=== PATIENT | male | born 1965 | race Caucasian/White ===

== ENCOUNTER 2023-12-20 08:00 | Outpatient (CLI) | payer OTHER, SELFPAY ==
[2023-12-20 13:26] LABS: Basophils Absolute Auto 0.1 K/mm3 (0.0-0.1); Eosinophils Absolute Auto 0.3 K/mm3 (0-0.3); Hematocrit 45.6 % (42.0-52.0); Hemoglobin 14.3 g/dL (14.0-18.0); Immature Granulocyte Absolute 0.03 K/mm3 (0.00-0.031); Immature Granulocyte Percent A 0.4 % (0-0.5); Lymphocytes Absolute Auto 1.83 K/mm3 (0.9-3.2); Mean Corpuscular HGB Conc 31.4 g/dl (32-36); Mean Corpuscular Hemoglobin 28.1 pg (26-34); Mean Corpuscular Volume 89.8 fl (80-100); Mean Platelet Volume 10.1 fl (7.4-10.4); Monocytes Absolute Auto 0.8 K/mm3 (0.1-0.6); Monocytes Percent Auto 11.2 % (2.6-8.5); Neutrophils Absolute Auto 3.8 K/mm3 (1.3-6.7); Neutrophils Percent Auto 55.4 % (45.5-73.1); Platelet Count Result 293 k/mm3 (150-375); Red Blood Count 5.08 M/mm3 (4.6-6.20); Red Cell Distribution Width 13.2 % (11.5-14.5); White Blood Count 6.8 K/mm3 (4.5-10.0)
[2023-12-20 13:39] LABS: Alanine Aminotransferase 36 U/L (6-50); Albumin Level 4.6 g/dL (3.5-5.1); Alkaline Phosphatase 53 U/L (38-126); Anion Gap 10 mmol/L (4-12); Aspartate Amino Transferase 48 U/L (17-59); Bilirubin,Total 0.7 mg/dL (0.2-1.3); Blood Urea Nitrogen 22 mg/dL (9-20); Calcium 9.9 mg/dL (8.4-10.2); Carbon Dioxide 28 mmol/L (22-30); Chloride 101 mmol/L (98-107); Cholesterol 189 mg/dL (0-200); Estimated Glomerular Filt Rate 52; Glucose 74 mg/dL (65-110); HDL Direct 38 mg/dL; Sodium 139 mmol/L (137-145); Triglycerides 164 mg/dL (<150)
[2023-12-20 13:52] LABS: LDL Cholesterol Direct 124 mg/dL
[2023-12-20 14:06] LABS: Prostate Specific Antigen 0.6 ng/mL (< OR = 4.0)
== END 2023-12-20 08:01 | disposition home or self-care (01) ==
LOC: ANHGOSHLAB 08:02
PROVIDERS: PCP Family Medicine; Visit Provider Family Medicine
DX: I10 Essential (primary) hypertension (principal); Z12.5 Encounter for screening for malignant neoplasm of prostate; Z00.00 Encounter for general adult medical examination without abnormal findings; E78.5 Hyperlipidemia, unspecified; E55.9 Vitamin D deficiency, unspecified; E53.8 Deficiency of other specified B group vitamins
CPT/HCPCS: 36415; 80053; 80061; 82306; 82607; 84153; 84443; 85025; G0103

== ENCOUNTER 2024-12-23 08:33 | Outpatient (CLI) | payer OTHER, SELFPAY ==
--- OUTSIDE RECORDS SUMMARY | 2024-12-23 08:56 | XMS_ITS | Clinical Summary ---
Author Organization [facility] [employer] Address [address] [place] [address] Care Team Providers Care Wine Manager Name Role Phone Janeth Ireland MD Primary Care Provider Allergies No known active allergies Medications lisinopril-hydr oCHLOROthiazide (ZESTORETIC) 20-12.5 mg per tablet Take 1 tablet by mouth daily Active niacin 100 mg tablet Take 100 mg by mouth as needed Active multivitamin capsule Take 1 capsule by mouth daily Active Active Problems Problem Noted Date Diagnosed Date Dizziness and giddiness 09/16/2021 Tinnitus of left ear 09/16/2021 Medical History Medical History Date Comments Hypertension Tinnitus Dizziness Family History Medical History Relation Name Comments Cancer Father Cancer Mother Relation Name Status Comments Father Mother Social History Tobacco Use Types Packs/Day Years Used Date Smoking Tobacco: Never Smokeless Tobacco: Never Personal Safety Answer Date Recorded Getting School Help Needed Not on file 09/18 Sex and Gender Information Value Date Recorded Sex Assigned at Not on file Legal Sex Male 8:30 AM AVAYA ENGINEER Gender Identity Not on file Sexual Orientation Not on file Obstetrics History Last Filed Vital Signs Vital Sign Reading Time Taken Comments Blood Pressure - - Pulse - - Temperature - - Respiratory Rate 17 09/14/2021 12:52 PM AVAYA ENGINEER Oxygen Saturation - - Inhaled Oxygen Concentration - - Weight 88.5 kg (195 lb) 09/14/2021 12:52 PM AVAYA ENGINEER Height 170.2 cm (5' 7) 09/14/2021 12:52 PM AVAYA ENGINEER Body Mass Index 30.54 09/14/2021 12:52 PM AVAYA ENGINEER Plan of Treatment Not on file Insurance [employer] Care Teams Wine Manager Relationship Specialty Start Date End Date Janeth Ireland MD PCP - General Family Practice 09/13/21
--- OUTSIDE RECORDS SUMMARY | 2024-12-23 08:56 | XMS_ITS | Referral Summary ---
Author Organization [facility] [[email or web address]] [address] [employer] Address [address] [place] [address] Care Team Providers Care Hand Paster Name Role Phone Janeth Ireland MD Primary [...] giddiness 09/16/2021 Tinnitus of left ear 09/16/2021 Social History Tobacco Use Types Packs/Day Years Used Date Smoking Tobacco: Never Smokeless Tobacco: Never Personal Safety Answer Date Recorded Getting School Help Needed Not on file 09/18 Sex and Gender Information Value Date Recorded Sex Assigned at Not on file Legal Sex Male 8:30 AM IT HELP DESK MANAGER Gender Identity Not on file Sexual Orientation Not on file Last Filed Vital Signs Vital Sign Reading Time Taken Comments Blood Pressure - - Pulse - - Temperature - - Respiratory Rate 17 09/14/2021 12:52 PM IT HELP DESK MANAGER Oxygen Saturation - - Inhaled Oxygen Concentration - - Weight 88.5 kg (195 lb) 09/14/2021 12:52 PM IT HELP DESK MANAGER Height 170.2 cm (5' 7) 09/14/2021 12:52 PM IT HELP DESK MANAGER Body Mass Index 30.54 09/14/2021 12:52 PM IT HELP DESK MANAGER Plan of Treatment Not on file Insurance [employer] Care Teams Hand Paster Relationship Specialty Start Date End Date Janeth Ireland MD PCP - General Family Practice 09/13/21
--- OUTSIDE RECORDS SUMMARY | 2024-12-23 08:56 | XMS_ITS | Clinical Summary ---
Author Organization [facility] Address [address] [facility] [address] [address] Phone Care Team Providers Care Systems Protection Technician Name Role Phone Janeth Ireland MD Primary Care Provider Allergies No known active allergies Medications lisinopril-hydro CHLOROthiazide (PRINZIDE, ZESTORETIC) 20-12.5 MG Tablet Take 1 Tab by mouth daily. Active niacin 100 MG Tablet Take 100 mg by mouth as needed. Active Encounters Date Type Department Care Team Description 09/25/2024 Telephone [facility] - Gastroenterology [facility] [address] [place] [address] Analilia Canales APRN, ANALYTICAL STATISTICIAN Procedure; Appointment from Last 3 Months Family History Medical History Relation Name Comments Cancer Father PROSTATE Hypertension Mother Stroke Mother Relation Name Status Comments Father Alive Mother Alive Social History Tobacco Use Types Packs/Day Years Used Date Smoking Tobacco: Never Smokeless Tobacco: Never Alcohol Use Standard Drinks/Week Comments Yes 0 (1 standard drink = 0.6 oz pur e alcohol) OCCASSIONALLY Sex and Gender Information Value Date Recorded Sex Assigned at Not on file Legal Sex Male 8:57 AM CDT Gender Identity Not on file Sexual Orientation Not on file Occupation Industry Job Start Date Job End Date [employer] Not on file Not on file Not on file Last Filed Vital Signs Vital Sign Reading Time Taken Comments Blood Pressure 112/65 05/04/2019 11:26 AM CDT Pulse 62 05/04/2019 11:26 AM CDT Temperature 36 C (96.8 F) 05/04/2019 11:26 AM CDT Respiratory Rate 14 05/04/2019 11:26 AM CDT Oxygen Saturation 100% 05/04/2019 11:26 AM CDT Inhaled Oxygen Concentration - - Weight 86.2 kg (190 lb) 04/21/2019 9:00 AM CDT Height 170.2 cm (5' 7) 04/21/2019 9:00 AM CDT Body Mass Index 29.76 04/21/2019 9:00 AM CDT Plan of Treatment Health Maintenance Due Date Last Done Comments Hepatitis C Virus (HCV) Screening 1965 TdaP Immunization 1965 Cologuard 2014 Immunochemical Fecal Occult Blood 2014 Pneumococcal Immunization (5 0+ years) (1 of 1 - PCV) 2014 Zoster Immunization (1 of 2) 2014 PSA Discussion 2019 Colonoscopy 05/04/2024 05/04/2019 Colorectal Cancer Screening 05/04/2024 Influenza Immunization (#1) 2024 SARS-COV-2 Immunization ( - 2023-25 season) 2024 Respiratory Syncytial Virus (RSV) Immunization (Adult) (1 - 1-dose 75+ series) 2039 05/04/2019 Hepatitis B Immunization Aged Out No longer eligible based on patient's age to complete this topic Meningococcal Immunization (ACWY) Aged Out No longer eligible based on patient's age to complete this topic Rotavirus Immunization Aged Out No lo nger eligible based on patient's age to complete this topic Insurance [facility] on file Care Teams Systems Protection Technician Relationship Specialty Start Date End Date Janeth Ireland MD PCP - General Family Medicine 02/13/19
--- OUTSIDE RECORDS SUMMARY | 2024-12-23 08:56 | XMS_ITS | Clinical Summary ---
Author Organization [facility] Address [address] [place] [address] Care Team Providers Care Executive Assistant To General Counsel Name Role Phone Janeth Ireland MD Primary Care Provider Allergies No known active allergies Medications diazePAM 5 MG tabletIndications:V ertigo Take 1 tablet (5 mg total) by mouth every 6 (six) hours as needed (vertigo). 30 tablet 1 Active prochlorperazine 10 MG tablet Take 1 tablet (10 mg total) by mouth every 6 (six) hours as needed (nausea/vom iting). 30 tablet 1 Active ondansetron 4 MG disintegrating tablet Take 1 tablet (4 mg total) by mouth every 6 (six) hours as needed for Nausea. 12 tablet 1 Active Active Problems Problem Noted Date Diagnosed Date Vertigo 10/25/2021 Social History Tobacco Use Types Packs/Day Years Used Date Smoking Tobacco: Never Assessed Sex and Gender Information Value Date Recorded Sex Assigned at Not on file Legal Sex Male 10:20 AM SENIOR LINUX ADMINISTRATOR Gender Identity Not on file Sexual Orientation Not on file Last Filed Vital Signs Vital Sign Reading Time Taken Comments Blood Pressure 150/64 09/07/2021 2:11 PM SENIOR LINUX ADMINISTRATOR Pulse 80 09/07/2021 2:11 PM SENIOR LINUX ADMINISTRATOR Temperature 36.4 C (97.5 F) 09/07/2021 10:28 AM SENIOR LINUX ADMINISTRATOR Respiratory Rate 20 09/07/2021 2:11 PM SENIOR LINUX ADMINISTRATOR Oxygen Saturation 99% 09/07/2021 2:11 PM SENIOR LINUX ADMINISTRATOR Inhaled Oxygen Concentration - - Weight 86.2 kg (190 lb) 09/07/2021 10:28 AM SENIOR LINUX ADMINISTRATOR Height 170.2 cm (5' 7) 09/07/2021 10:28 AM SENIOR LINUX ADMINISTRATOR Body Mass Index 29.76 09/07/2021 10:28 AM SENIOR LINUX ADMINISTRATOR Plan of Treatment Health Maintenance Due Date Last Done Comments Colorectal Cancer Screening Colonoscopy (10 Years) 1964 Annual Physical 1967 Hepatitis C 1982 Zoster Vaccines (1 of 2) 2014 COVID-19 Vaccine (1 - 2023-2 5 season) 2024 DTaP, Tdap and Td Vaccines ( 2 - Td or Tdap) 12/24/2024 12/24/2014 RSV Immunization or 60+ Years (1 - 1-dose 75+ series) 2039 Meningococcal B Vaccine Aged Out No l onger eligible based on patient's age to complete this topic Meningococcal Vaccine Aged Out No demarco breanne eligible based on patient's age to complete this topic Pneumococcal Vaccine: Pediat rics (0 to 5 Years) and At-Risk Patients (6 to 64 Years) Aged Out No longer eligi ble based on patient's age to complete this topic RSV Immunizations Under 20 Months Aged Out No longer eligible based on patient's age to complete this topic Insurance [employer] Care Teams Executive Assistant To General Counsel Relationship Specialty Start Date End Date Janteh Ireland MD [address] [place] [address] PCP - General FAMILY PRACTICE 09/07/21
[2024-12-23 11:24] LABS: Basophils Absolute Auto 0.1 K/mm3 (0.0-0.1); Basophils Percent Auto 0.9 % (0.2-1.2); Eosinophils Absolute Auto 0.2 K/mm3 (0-0.3); Eosinophils Percent Auto 3.5 % (0-4.4); Hematocrit 44.8 % (42.0-52.0); Immature Granulocyte Absolute 0.03 K/mm3 (0.00-0.031); Immature Granulocyte Percent A 0.4 % (0-0.5); Lymphocytes Absolute Auto 2.22 K/mm3 (0.9-3.2); Lymphocytes Percent Auto 32.6 % (18.3-44.2); Mean Corpuscular HGB Conc 31.3 g/dl (32-36); Mean Corpuscular Hemoglobin 27.7 pg (26-34); Mean Corpuscular Volume 88.5 fl (80-100); Mean Platelet Volume 10.3 fl (7.4-10.4); Monocytes Absolute Auto 0.5 K/mm3 (0.1-0.6); Monocytes Percent Auto 7.8 % (2.6-8.5); Neutrophils Absolute Auto 3.7 K/mm3 (1.3-6.7); Neutrophils Percent Auto 54.8 % (45.5-73.1); Platelet Count Result 302 k/mm3 (150-375); Red Blood Count 5.06 M/mm3 (4.6-6.20); Red Cell Distribution Width 13.2 % (11.5-14.5); White Blood Count 6.8 K/mm3 (4.5-10.0)
[2024-12-23 12:24] LABS: Alanine Aminotransferase 29 U/L (6-50); Albumin Level 4.5 g/dL (3.5-5.1); Alkaline Phosphatase 49 U/L (38-126); Anion Gap 9 mmol/L (4-12); Aspartate Amino Transferase 29 U/L (17-59); Bilirubin,Total 0.4 mg/dL (0.2-1.3); Blood Urea Nitrogen 25 mg/dL (9-20); Calcium 9.2 mg/dL (8.4-10.2); Carbon Dioxide 27 mmol/L (22-30); Chloride 102 mmol/L (98-107); Cholesterol 161 mg/dL (0-200); Estimated Glomerular Filt Rate 51; Glucose 87 mg/dL (65-110); HDL Direct 36 mg/dL; Potassium 3.8 mmol/L (3.4-5.0); Sodium 138 mmol/L (137-145); Triglycerides 154 mg/dL (<150)
[2024-12-23 12:35] LABS: LDL Cholesterol Direct 103 mg/dL
[2024-12-23 12:58] LABS: Prostate Specific Antigen 0.8 ng/mL (< OR = 4.0)
== END 2024-12-23 08:34 | disposition home or self-care (01) ==
LOC: ANHGOSHLAB 08:34
PROVIDERS: PCP Family Medicine; Visit Provider Nurse Practitioner Family
DX: E78.5 Hyperlipidemia, unspecified (principal); I10 Essential (primary) hypertension; Z12.5 Encounter for screening for malignant neoplasm of prostate; Z13.220 Encounter for screening for lipoid disorders; N18.30 Chronic kidney disease, stage 3 unspecified
CPT/HCPCS: 36415; 80053; 80061; 84153; 84443; 85025; G0103

== ENCOUNTER 2025-01-04 01:03 | Day surgery (SDC) | payer OTHER, SELFPAY ==
[2024-12-24 11:03] VITALS: BMI 32.4
--- OUTSIDE RECORDS SUMMARY | 2025-01-04 01:07 | XMS_ITS | Clinical Summary ---
Author Organization [facility] Address [address], [address] [address] Phone Care Team Providers Care Tool Builder Name Role Phone Janeth Ireland MD Primary Care Provider Allergies No known active allergies Medications lisinopril-hydro CHLOROthiazide (PRINZIDE, ZESTORETIC) 20-12.5 MG Tablet Take 1 Tab by mouth daily. Active niacin 100 MG Tablet Take 100 mg by mouth as needed. Active Family History Medical History Relation Name Comments [...] 9:00 AM CDT Height 170.2 cm (5' 7 ) 04/21/2019 9:00 AM CDT Body Mass Index [...] Immunization (#1) 2024 SARS-COV-2 Immunization ( - season) 2024 Respiratory Syncytial Virus (RSV) Immunization [...] patient's age to complete this topic [place] [address] [place] [address] on file Care Teams Tool Builder Relationship Specialty Start Date End Date Janeth Ireland MD PCP - General Family Medicine 02/13/19
--- OUTSIDE RECORDS SUMMARY | 2025-01-04 01:07 | XMS_ITS | Clinical Summary ---
Author Organization [facility] [address] [employer] Address [address] [place] [address] Care Team Providers Care Poultry Pinner Name Role Phone Janeth Ireland MD Primary [...] on file Legal Sex Male 8:30 AM SHUTTLE FILLER Gender Identity Not on file Sexual Orientation Not on file Obstetrics History Last Filed Vital Signs Vital Sign Reading Time Taken Comments Blood Pressure - - Pulse - - Temperature - - Respiratory Rate 17 09/14/2021 12:52 PM SHUTTLE FILLER Oxygen Saturation - - Inhaled Oxygen Concentration - - Weight 88.5 kg (195 lb) 09/14/2021 12:52 PM SHUTTLE FILLER Height 170.2 cm (5' 7 ) 09/14/2021 12:52 PM SHUTTLE FILLER Body Mass Index 30.54 09/14/2021 12:52 PM SHUTTLE FILLER Plan of Treatment Not on file Insurance [employer] Care Teams Poultry Pinner Relationship Specialty Start Date End Date Janeth Ireland MD PCP - General Family Practice 09/13/21
--- OUTSIDE RECORDS SUMMARY | 2025-01-04 01:07 | XMS_ITS | Referral Summary ---
Author Organization [facility] [address] [employer] Address [address] [place] [address] Care Team Providers Care Dungeon Master Name Role Phone Janeth Ireland MD Primary [...] on file Legal Sex Male 8:30 AM MULE RIDER Gender Identity Not on file Sexual Orientation Not on file Last Filed Vital Signs Vital Sign Reading Time Taken Comments Blood Pressure - - Pulse - - Temperature - - Respiratory Rate 17 09/14/2021 12:52 PM MULE RIDER Oxygen Saturation - - Inhaled Oxygen Concentration - - Weight 88.5 kg (195 lb) 09/14/2021 12:52 PM MULE RIDER Height 170.2 cm (5' 7 ) 09/14/2021 12:52 PM MULE RIDER Body Mass Index 30.54 09/14/2021 12:52 PM MULE RIDER Plan of Treatment Not on file Insurance [employer] Care Teams Dungeon Master Relationship Specialty Start Date End Date Janeth Ireland MD PCP - General Family Practice 09/13/21
--- OUTSIDE RECORDS SUMMARY | 2025-01-04 01:07 | XMS_ITS | Clinical Summary ---
Author Organization [facility] Address [address] [place] [address] Care Team Providers Care Appeals Analyst Name Role Phone Janeth Ireland MD Primary [...] on file Legal Sex Male 10:20 AM BOAT CREW DECK HAND Gender Identity Not on file Sexual Orientation Not on file Last Filed Vital Signs Vital Sign Reading Time Taken Comments Blood Pressure 150/64 09/07/2021 2:11 PM BOAT CREW DECK HAND Pulse 80 09/07/2021 2:11 PM BOAT CREW DECK HAND Temperature 36.4 C (97.5 F) 09/07/2021 10:28 AM BOAT CREW DECK HAND Respiratory Rate 20 09/07/2021 2:11 PM BOAT CREW DECK HAND Oxygen Saturation 99% 09/07/2021 2:11 PM BOAT CREW DECK HAND Inhaled Oxygen Concentration - - Weight 86.2 kg (190 lb) 09/07/2021 10:28 AM BOAT CREW DECK HAND Height 170.2 cm (5' 7 ) 09/07/2021 10:28 AM BOAT CREW DECK HAND Body Mass Index 29.76 09/07/2021 10:28 AM BOAT CREW DECK HAND Plan of Treatment Health Maintenance Due Date Last Done Comments Colorectal Cancer Screening Colonoscopy (10 Years) 1964 Annual Physical 1967 Hepatitis C 1982 Pneumococcal Vaccine: 50+ Ye ars (1 of 1 - PCV) 2014 Zoster Vaccines (1 of 2) 2014 COVID-19 [...] complete this topic Insurance [employer] Care Teams Appeals Analyst Relationship Specialty Start Date End Date Janeth Ireland MD [address] [place] [address] PCP - General FAMILY PRACTICE 09/07/21
[2025-01-04 07:26] VITALS: BP 127/86; PULSE 81; RESP 18; TEMP 36.5; O2SAT 100
--- NOTE | 2025-01-04 07:26 | P.PNAN_ITS ---
Anes - Initial Pre Proc Eval Procedure: Operation Date: 01/04/25 08:30 Proposed Procedures p Colonoscopy - Ronaldo Sethi MD Date/Time: 01/04/25 07:26 Surgeon: Ronaldo Sethi MD Pre Op Diagnosis: hx of colon polyps Patient Data Age: 59 Gender: M Height: 1.7 m Weight: 94 kg Allergies Allergy/AdvReac Type Severity Reaction Status Date / Time No Known Allergies Allergy Verified 01/04/25 07:23 Home Medications ?Medication ?Instructions ?Recorded ?Confirmed ?Type cholecalciferol (vitamin D3) 25 25 mcg PO DAILY 12/05/22 01/04/25 History mcg (1,000 unit) capsule lisinopril 20 1 tablet PO DAILY #90 tabs 09/01/24 01/04/25 Rx mg-hydrochlorothiazide 12.5 mg tablet Patient hx anesthesia problems: none Family hx anesthesia problems: none Results Review: All pre-operative results and documents have been reviewed as part of the pre- operative evaluation. [facility] Past Medical History Medical History GERD (gastroesophageal reflux disease) History of COVID-19 CKD (chronic kidney disease) stage 3, GFR 30-59 ml/min History of colon polyps Essential (primary) hypertension Surgical History Surgical History No pertinent past surgical history Family History Family History Father Malignant neoplasm of prostate Mother Melanoma Social History Social History Smoking status: Never smoker Second hand tobacco smoke exposure: No Alcohol intake: current Alcohol use details: consumes 3 mixed drinks socially Substance use: never Substance use type: does not use Lack of Transportation: No Lack of Food: Never True Current Housing: I Have Housing Concerned About Future Housing: No Difficulty Paying Gas/Electric Bills: No Difficulty Paying for Meds: No Currently Unemployed: No Education: High School Diploma/GED Difficulty w/ Childcare or Family Care: No Living arrangements: with family Additional living arrangements comments: Occupation/Education: occupation Gender identity (if verbalized by the patient): Male Sexual Orientation (if Verbalized by the Patient): Straight or Heterosexual Spiritual care concerns: No Anes - Eval Final PreProcedure Day of Procedure 01/04/25 07:26 Patient weight: obese Heart: regular rate and rhythm Lungs: clear to auscultation Airway: Mallampati scale class II Neurological: alert and oriented Last oral intake: >/= 8 hours ASA classification: II Emergent: no Anesthetic plan: proceed Anesthesia type and monitoring: general GIVS and standard monitoring Results Review: All pre-operative results and documents have been reviewed as part of the pre-o perative evaluation. Informed Consent: The patient's anesthetic plan and its attendant risks and benefits were discussed with the patient/family/POA. Questions were solicited and answers provided to the satisfaction of the patient/family/POA.
[2025-01-04] MEDS: LACTATED RINGERS 1,000 ML 150 ML IV CONT (07:34)
--- NOTE | 2025-01-04 08:11 | PM.HPGS ---
History of Present Illness History of Present Illness Consent: Risks, benefits, and alternatives have been discussed and questions answered. Patient agrees to proceed with procedure. Chief complaint: hx of colon polyps Narrative: Jaime Lorenzana is a 59 year old male with colon polyp in 2019 Review of Systems Review of Systems: All systems reviewed & are unremarkable except as noted in HPI and below PMFSH Past Medical History Medical History GERD (gastroesophageal reflux disease) History of COVID-19 CKD (chronic kidney disease) stage 3, GFR 30-59 ml/min History of colon polyps Essential (primary) hypertension Surgical History Surgical History No pertinent past surgical history Family History Family History Father Malignant neoplasm of prostate Mother Melanoma Social History Social History Smoking status: Never smoker Second hand tobacco smoke exposure: No Alcohol intake: current Alcohol use details: consumes 3 mixed drinks socially Substance use: never Substance use type: does not use Lack of Transportation: No Lack of Food: Never True Current Housing: I Have Housing Concerned About Future Housing: No Difficulty Paying Gas/Electric Bills: No Difficulty Paying for Meds: No Currently Unemployed: No Education: High School Diploma/GED Difficulty w/ Childcare or Family Care: No Living arrangements: with family Additional living arrangements comments: Occupation/Education: occupation Gender identity (if verbalized by the patient): Male Sexual Orientation (if Verbalized by the Patient): Straight or Heterosexual Spiritual care concerns: No Meds Home Medications and Allergies Home Medications ?Medication ?Instructions ?Recorded ?Confirmed ?Type cholecalciferol (vitamin D3) 25 25 mcg PO DAILY 12/05/22 01/04/25 History mcg (1,000 unit) capsule lisinopril 20 1 tablet PO DAILY #90 tabs 09/01/24 01/04/25 Rx mg-hydrochlorothiazide 12.5 mg tablet Allergies Allergy/AdvReac Type Severity Reaction Status Date / Time No Known Allergies Allergy Verified 01/04/25 07:23 Vital Signs Vital Signs - 24 hr 01/04/25 07:26 Temperature 97.7 F Pulse Rate 81 Respiratory Rate 18 Blood Pressure 127/86 Pulse Oximetry 100 Oxygen Delivery Room Air Exam Const: General: comfortable and no acute distress HENMT: Face/Nose/Sinus: Normal nares present Eyes: General: appearance normal, both eyes and all related structures Neck: Neck: no JVD Resp: Auscultation: clear to auscultation bilaterally Cardio: Rate: regular rate Rhythm: regular rhythm GI: Inspection: non-distended GI Palp: Yes Soft to palpation Skin: General skin exam: normal color Neuro: General: gait normal Speech: normal speech Extrem: General: normal to inspection Psych: Mental Status: mental status grossly normal Assessment and Plan Assessment and plan (1) History of colon polyps: Code(s): Z86.010 - Personal history of colon polyps Status: Acute Assessment and Plan: colonoscopy
[2025-01-04 08:24] VITALS: BP 87/56; PULSE 71; RESP 17; O2SAT 97
[2025-01-04 08:34] VITALS: BP 103/65; PULSE 61; RESP 13; O2SAT 97
[2025-01-04 08:44] VITALS: BP 120/75; PULSE 65; RESP 13; O2SAT 98
== END 2025-01-04 08:53 | disposition home or self-care (01) ==
PROVIDERS: PCP Family Medicine; Referring Provider Family Medicine; Visit Provider Internal Medicine Gastroenterology
PROC: 0DJD8ZZ Inspection of Lower Intestinal Tract, Via Natural or Artificial Opening Endoscopic (ICD-10-PCS; CPT 45378; principal; 2025-01-04 08:30)
DX: Z12.11 Encounter for screening for malignant neoplasm of colon (principal); K63.5 Polyp of colon; K64.8 Other hemorrhoids; K57.30 Diverticulosis of large intestine without perforation or abscess without bleeding; K21.9 Gastro-esophageal reflux disease without esophagitis; I12.9 Hypertensive chronic kidney disease with stage 1 through stage 4 chronic kidney disease, or unspecified chronic kidney disease; N18.30 Chronic kidney disease, stage 3 unspecified; E66.9 Obesity, unspecified; Z68.30 Body mass index [BMI] 30.0-30.9, adult; Z80.42 Family history of malignant neoplasm of prostate; Z80.8 Family history of malignant neoplasm of other organs or systems
CPT/HCPCS: 45380; 88305; J2003; J2704; J7120